=== PATIENT | male | born 1985 | race Caucasian/White ===

== ENCOUNTER → 2021-02-26 13:59 | Outpatient (CLI) | payer BC, SELFPAY ==
--- NOTE | ~2021-02-26 | XR_ITS ---
XR abdomen/kub 1V 02/26/2021 14:32 INDICATION: Iron deficiency anemia TECHNIQUE: KUB COMPARISON: None FINDINGS: Bowel gas pattern is normal. There is no evidence of free air, mass, organomegaly, ascites or obstruction. No abnormal calculi are seen. The bones appear intact. IMPRESSION: 1: No acute abdominal abnormality identified. Reviewed, dictated and finalized at location A.
== END ==
DX: D50.8 Other iron deficiency anemias (principal); K59.09 Other constipation
CPT/HCPCS: 74018